=== PATIENT | male | born 1945 | race Caucasian/White ===

== ENCOUNTER 2016-08-25 13:10 | Emergency (ER) | payer OTHER, MEDICAID ==
[~2016-08-25] VITALS: Ht 185.4 cm; Wt 120.3 kg
[~2016-08-25 13:10] MED LIST: ACET325 PO; ALBU8I INH; ASPI81TA82 PO; DILT180C56 PO; GABA100C4 PO; LORTA5 PO; PRIL20CA PO; PRIN20TA2 PO; SENN187 PO; SERT50 PO
[2016-08-25 13:19] VITALS: BP 162/81; PULSE 73; RESP 17; TEMP 97.7; O2SAT 96
[2016-08-25] MEDS ORDERED: LISI10TA3 PO (13:39)
[2016-08-25] MEDS ORDERED: METF500T PO (13:39)
--- NOTE | 2016-08-25 13:40 | PD ---
HPI Chief Complaint: Medication Refill Request Time Seen by Provider: 13:33 Travel History International Travel<30 days: No Contact w/Intl Traveler<30days: No Traveled to known affect area: No History of Present Illness HPI This is a 71-year-old male who presents to the emergency department having run out of his blood pressure and diabetes medications 2 weeks ago. His friend was worried about him and brought him to the emergency department because she didn' t want his blood pressure to get too high. He is completely asymptomatic. He is supposed to be going into a shelter in the next 2 weeks. PFSH Past Medical History Arthritis: Yes (NECK) Asthma: No Autoimmune Disease: No Blood Disorders: No Anxiety: No Depression: No Heart Rhythm Problems: No Cancer: No Cardiovascular Problems: Yes High Cholesterol: No Chemotherapy: No Chest Pain: No Congestive Heart Failure: No COPD: No Cerebrovascular Accident: Yes (2 tia) Diabetes: Yes (BORDERLINE) Diminished Hearing: No Endocrine: No GERD: No Glaucoma: No Genitourinary: No Headaches: Yes Hepatitis: No Hiatal Hernia: No Hypertension: Yes Immune Disorder: No Kidney Stones: No Musculoskeletal: Yes Neurologic: Yes Psychiatric: No Reproductive: No Respiratory: Yes Migraines: No Myocardial Infarction: No Radiation Therapy: No Renal Failure: No Seizures: No Sickle Cell Disease: No Sleep Apnea: No Thyroid Disease: No Ulcer: No ?: Not Past Surgical History Abdominal Surgery: No AICD: No Appendectomy: No Arteriovenous Shunt: No Cardiac Surgery: No Cholecystectomy: No Ear Surgery: No Endocrine Surgery: No Eye Surgery: No Genitourinary Surgery: No Gynecologic Surgery: No Insulin Pump: No Joint Replacement: No Oral Surgery: No Pacemaker: No Thoracic Surgery: No Other Surgery: Yes Social History Alcohol Use: Yes (4BEERS/DAY) Tobacco Use: Yes (1 PPD) Substance Use: No Allergies-Medications (Allergen,Severity, Reaction): Coded Allergies: *MDRO Multi-Drug Resistant Organism (Verified Adverse Reaction, Unknown, ) MRSA Acinetobacter baumannii - sensitive Reported Meds & Prescriptions Reported Meds & Active Scripts Active Senokot 8.6 mg Tab (Sennosides) 8.6 Mg Tab 17.2 Mg PO Q12H PRN Zoloft (Sertraline HCl) 50 Mg Tab 50 Mg PO DAILY Tylenol (Acetaminophen) 325 Mg Tab 650 Mg PO Q4H PRN Hydrocodone/Acetaminophen 5 mg/325 mg Acetaminophen 325/5 Hydrocodone Tab 1 Tab PO Q4H PRN Reported Prilosec (Omeprazole) 20 Mg Capcr 20 Mg PO DAILY Aspir-81 (Aspirin) 81 Mg Tab 81 Mg PO DAILY Gabapentin 100 Mg Cap 100 Mg PO TID Ventolin Hfa (Albuterol Sulfate) 8 Gm Aero 2 Puff INH Q6 PRN * SHAKE WELL BEFORE USE * Cardizem Cd (Diltiazem HCl) 180 Mg Capcr 180 Mg PO DAILY Prinivil (Lisinopril) 20 Mg Tab 20 Mg PO DAILY Review of Systems Except as stated in HPI: all other systems reviewed are Neg Physical Exam Narrative GENERAL:Well appearing, no acute distress SKIN: Warm and dry. HEAD: Atraumatic. Normocephalic. EYES: Pupils equal and round. No injection or drainage. ENT: Moist mucous membranes NECK: Trachea midline. CARDIOVASCULAR: Regular rate and rhythm. No murmur appreciated. RESPIRATORY: Clear to auscultation. Breath sounds equal bilaterally. GASTROINTESTINAL: Abdomen soft, non-tender, nondistended. MUSCULOSKELETAL: Chronic lymphedema of the left lower extremity. NEUROLOGICAL: Awake and alert. No obvious cranial nerve deficits. Moving all extremities. PSYCHIATRIC: Appropriate mood and affect; insight and judgment normal. Data Data Last Documented VS Vital Signs Date Time Temp Pulse Resp B/P Pulse Ox O2 Delivery O2 Flow Rate FiO2 08/25/16 13:19 97.7 73 17 162/81 96 MDM Medical Decision Making Medical Screen Exam Complete: Yes Emergency Medical Condition: Yes Interpretation(s) Hypertensive Differential Diagnosis Hypertension, hypertensive urgency, hypertensive emergency Narrative Course This is a 71-year-old male who presents to the emergency department having run out of his blood pressure and diabetes medicines. He is completely asymptomatic. Here his blood pressure is slightly elevated. Patient will be discharged home with 1 month of refills. Diagnosis Primary Impression: Hypertension Qualified Code: I10 - Essential hypertension Patient Instructions: General Instructions Additional Instructions: If you develop severe chest pain, shortness of breath, sweating, lightheadedness , dizziness or difficulty breathing return to the emergency department immediately. Followup with your primary care physician in 2-3 days if your symptoms are not resolved. Med/Other Pt SpecificInfo: Prescription(s) given Scripts Metformin 500 Mg [id number] Mg PO BIDPC #60 TAB Ref 0 With meals Prov:Highet,Kellie H. MD 08/25/16 Lisinopril 10 Mg Tab10 Mg PO DAILY #30 TAB Ref 0 Prov:Kellie Abrams MD 08/25/16 Disposition: 01 DISCHARGE HOME Condition: Stable Kellie Abrams MD Aug 25, 2016 13:40
[2016-08-25 13:54] VITALS: BP 160/70
== END 2016-08-25 13:56 | disposition home or self-care (01) ==
LOC: PHED 13:10
DX: I10 Essential (primary) hypertension (principal); E11.9 Type 2 diabetes mellitus without complications; Z86.73 Personal history of transient ischemic attack (TIA), and cerebral infarction without residual deficits; F17.210 Nicotine dependence, cigarettes, uncomplicated; Z79.899 Other long term (current) drug therapy
CPT/HCPCS: 99281